=== PATIENT | female | born 1955 | race Caucasian/White ===

== ENCOUNTER 2020-08-17 07:45 | Outpatient (CLI) | payer BC, SELFPAY ==
--- NOTE | ~2020-08-17 | DEXA_ITS ---
Bone Density Report Name: Ruth Garcia Age: 65 Sex: Female Ethnicity: White Date of : 1955 Indication: osteopenia; height loss; postmenopausal Referring Provider: MACKENZIE BETHEA Study: Bone densitometry was performed. Exam Date: August 17, 2020 Accession number: [id number] Bone Density: Region BMD T-score Z-score Classification AP Spine (L1-L4) 0.930 -1.1 0.6 Osteopenia Femoral Neck (Left) 0.713 -1.2 0.2 Osteopenia Total Hip (Left) 0.790 -1.2 -0.1 Osteopenia Total Hip Bilateral Avg 0.790 -1.3 -0.1 Osteopenia Femoral Neck (Right) 0.637 -1.9 -0.4 Osteopenia Total Hip (Right) 0.789 -1.3 -0.1 Osteopenia World Health Organization criteria for BMD impression classify patients as: Normal (T-score at or above -1.0), Osteopenia (T-score between -1.0 and -2.5), or Osteoporosis (T-score at or below -2.5). 10-year Fracture Risk(1): Major Osteoporotic Fracture 9.0% Hip Fracture 1.2% Reported Risk Factors: [place] (), Neck BMD=0.637, BMI=21.4 (1) FRAX(R) Version 3.08. Fracture probability calculated for an untreated patient. Fracture probability may be lower if the patient has received treatment. Previous Exams: Region Exam Age BMD T-score BMD Change BMD Change Date g/cm2 vs Baseline vs Previous AP Spine(L1-L4) 08/17/2020 65 0.930 -1.1 -0.204(-18.0%) -0.034(-3.5%)* 01/22/2018 62 0.964 -0.8 -0.170(-15.0%) -0.044(-4.3%)* 01/10/2015 59 1.007 -0.4 -0.126(-11.1%) -0.075(-6.9%)# 11/20/2011 56 1.082 0.3 -0.051(-4.5%)# -0.051(-4.5%)# 09/08/2008 53 1.134 0.8 Total Hip(Left) 08/17/2020 65 0.790 -1.2 -0.221(-21.8%) -0.023(-2.9%) 01/22/2018 62 0.814 -1.1 -0.197(-19.5%) -0.046(-5.3%)* 01/10/2015 59 0.859 -0.7 -0.152(-15.0%) -0.066(-7.1%)# 11/20/2011 56 0.925 -0.1 -0.086(-8.5%)# -0.086(-8.5%)# 09/08/2008 53 1.011 0.6 Total Hip(Right) 08/17/2020 65 0.789 -1.3 -0.223(-22.0%) -0.010(-1.2%) 01/22/2018 62 0.799 -1.2 -0.213(-21.1%) -0.057(-6.7%)* 01/10/2015 59 0.856 -0.7 -0.156(-15.4%) -0.056(-6.1%)# 11/20/2011 56 0.911 -0.3 -0.100(-9.9%)# -0.100(-9.9%)# 09/08/2008 53 1.012 0.6 *Denotes significance at 95% confidence level, LSC for AP Spine = 0.022 g/cm2, LSC for Total Hip = 0.027 g/cm2 Clinical Information Provided by Patient: Has used the following medications: Vitamin D, Calcium Patient maximum height was 65 Menopause Age: 53 Drinks caffeinated beverages Onset of menses at age 13 Number of children 3 --
--- NOTE | ~2020-08-17 | MM_ITS ---
EXAMINATION: MM screening [facility] BI w wes HISTORY: Screening TECHNIQUE: Craniocaudal and mediolateral oblique 3-D tomosynthesis images were obtained and synthetic 2-D images were generated. CAD analysis was submitted and interpreted. COMPARISON: Comparison to multiple prior studies sequentially, with oldest reviewed study dated 11/2013. BREAST PARENCHYMAL COMPOSITION: The breasts are heterogeneously dense, which may obscure small masses . FINDINGS: There is no evidence of suspicious mass, calcification, or architectural distortion to sugg est malignancy in either breast. There has been no suspicious interval change. IMPRESSION: 1. No mammographic evidence of malignancy. 2. Recommend routine screening mammography in one year. BI-RADS Category 1: Negative Reviewed, dictated and finalized at location A.
== END 2020-08-17 07:46 | disposition home or self-care (01) ==
LOC: ANHIMG 07:49
PROVIDERS: PCP Internal Medicine; Visit Provider Obstetrics & Gynecology Gynecology
DX: Z12.31 Encounter for screening mammogram for malignant neoplasm of breast (principal); Z78.0 Asymptomatic menopausal state; M85.88 Other specified disorders of bone density and structure, other site; M85.852 Other specified disorders of bone density and structure, left thigh; M85.851 Other specified disorders of bone density and structure, right thigh
CPT/HCPCS: 77063; 77067; 77080

== ENCOUNTER 2021-10-31 09:39 | Outpatient (CLI) | payer MEDICARE, OTHER, SELFPAY ==
--- NOTE | ~2021-10-31 | MM_ITS ---
EXAMINATION: MM screening [facility] BI w wes HISTORY: Screening TECHNIQUE: Craniocaudal and mediolateral oblique 3-D tomosynthesis images were obtained and synthetic 2-D images were generated. CAD analysis was submitted and interpreted. COMPARISON: Comparison to multiple prior studies sequentially, with oldest reviewed study dated 12/29. BREAST PARENCHYMAL COMPOSITION: Breast composed of scattered areas of fibroglandular density FINDINGS: There is no evidence of suspicious mass, calcification, or architectural distortion to sugg est malignancy in either breast. There has been no suspicious interval change. IMPRESSION: 1. No mammographic evidence of malignancy. 2. Recommend routine screening mammography in one year. BI-RADS Category 1: Negative Reviewed, dictated and finalized at location A.
== END 2021-10-31 09:40 | disposition home or self-care (01) ==
PROVIDERS: PCP Internal Medicine; Visit Provider Nurse Practitioner
DX: Z12.31 Encounter for screening mammogram for malignant neoplasm of breast (principal)
CPT/HCPCS: 77063; 77067

== ENCOUNTER → 2022-07-05 07:49 | Outpatient (CLI) | payer MEDICARE, OTHER, SELFPAY ==
--- NOTE | ~2022-07-05 | XR_ITS ---
EXAMINATION: XR knee LT 3V DATE: 07/05/2022 08:13 INDICATION: Left knee pain TECHNIQUE: Three views of the left knee were obtained. COMPARISON: None. FINDINGS: Alignment is normal. No fracture or osteochondral lesion. There is mild tricompartmental os teoarthritis characterized by tiny marginal osteophytes. There is small knee joint effusion. There is mild medial soft tissue swelling of the knee. IMPRESSION: 1. Mild osteoarthritis and small knee joint effusion without acute osseous abnormality. Reviewed, dictated and finalized at location B. IMPRESSION: 1. Mild osteoarthritis and small knee joint effusion without acute osseous abno rmality.
== END ==
PROVIDERS: PCP Internal Medicine; Visit Provider Clinical Nurse Specialist
DX: M17.12 Unilateral primary osteoarthritis, left knee (principal); M25.462 Effusion, left knee
CPT/HCPCS: 73562

== ENCOUNTER 2023-03-04 08:22 | Outpatient (CLI) | payer MEDICARE, OTHER, SELFPAY ==
--- NOTE | ~2023-03-04 | DEXA_ITS ---
Bone Density Report Name: CANDY BENTON Age: 67 Sex: Female Ethnicity: White Date of : 1955 Indication: osteopenia; parental hip fracture; height loss; postmenopausal Referring Provider: KHUSHBU, PRETTY Study: Bone densitometry was performed. Exam Date: March 04, 2023 Accession number: [id number] Bone Density: Region BMD T-score Z-score Classification AP Spine(L1-L4) 0.885 -1.5 0.4 Osteopenia Femoral Neck (Left) 0.714 -1.2 0.4 Osteopenia Total Hip (Left) 0.803 -1.1 0.2 Osteopenia Femoral Neck (Right) 0.640 -1.9 -0.3 Osteopenia Total Hip (Right) 0.785 -1.3 0.0 Osteopenia Total Hip Mean 0.794 -1.2 0.1 Osteopenia World Health Organization criteria for BMD impression classify patients as: Normal (T-score at or above -1.0), Osteopenia (T-score between -1.0 and -2.5), or Osteoporosis (T-score at or below -2.5). 10-year Fracture Risk(1): Major Osteoporotic Fracture 16% Hip Fracture 1.9% Reported Risk Factors: [place] (), Neck BMD=0.640, BMI=20.3, parental fracture (1) FRAX(R) Version 3.08. Fracture probability calculated for an untreated patient. Fracture probability may be lower if the patient has received treatment. Previous Exams: Region Exam Age BMD T-score BMD Change BMD Change Date g/cm2 vs Baseline vs Previous AP Spine (L1-L4) 03/04/2023 67 0.885 -1.5 -0.197 (-18.2% -0.044 (-4.8%) 08/17/2020 65 0.930 -1.1 -0.153 (-14.1% -0.034 (-3.5%) 01/22/2018 62 0.964 -0.8 -0.119 (-11.0% -0.044 (-4.3%) 01/10/2015 59 1.007 -0.4 -0.075 (-6.9%) -0.075 (-6.9%) 11/20/2011 56 1.082 0.3 Total Hip(Left) 03/04/2023 67 0.803 -1.1 -0.121 (-13.1% 0.013 (1.7%) 08/17/2020 65 0.790 -1.2 -0.134 (-14.5% -0.023 (-2.9%) 01/22/2018 62 0.814 -1.1 -0.111 (-12.0% -0.046 (-5.3%) 01/10/2015 59 0.859 -0.7 -0.066 (-7.1%) -0.066 (-7.1%) 11/20/2011 56 0.925 -0.1 Total Hip(Right) 03/04/2023 67 0.785 -1.3 -0.126 (-13.8% -0.003 (-0.4%) 08/17/2020 65 0.789 -1.3 -0.123 (-13.5% -0.010 (-1.2%) 01/22/2018 62 0.799 -1.2 -0.113 (-12.4% -0.057 (-6.7%) 01/10/2015 59 0.856 -0.7 -0.056 (-6.1%) -0.056 (-6.1%) 11/20/2011 56 0.911 -0.3 *Denotes significance at 95% confidence level, LSC for AP Spine = 0.022 g/cm2, LSC for Total Hip = 0.027 g/cm2 # Denotes dissimilar scan types or analysis methods Clinical Information Provided by Patient: Parent has had a hip fracture Has used the following medications: Vitamin D
--- NOTE | ~2023-03-04 | MM_ITS ---
EXAMINATION: MM screening [facility] BI w wes HISTORY: Screening mammogram TECHNIQUE: Craniocaudal and mediolateral oblique 3-D tomosynthesis images were obtained and synthetic 2-D images were generated. CAD analysis was submitted and interpreted. COMPARISON: 10/31/2021, 08/17/2020, 01/26/2019 BREAST PARENCHYMAL COMPOSITION: There are scattered areas of fibroglandular density. FINDINGS: No suspicious mass, calcification, or architectural distortion are identified in either cristina ast to suggest malignancy. There has been no suspicious interval change. IMPRESSION: 1. No mammographic evidence of malignancy. 2. Recommend routine screening mammography in one year. BI-RADS Category 1: Negative Reviewed, dictated and finalized at location A. LEMENTAL NURSE
== END 2023-03-04 08:23 | disposition home or self-care (01) ==
PROVIDERS: PCP Internal Medicine; Visit Provider Nurse Practitioner
DX: Z12.31 Encounter for screening mammogram for malignant neoplasm of breast (principal); Z78.0 Asymptomatic menopausal state; M85.89 Other specified disorders of bone density and structure, multiple sites
CPT/HCPCS: 77063; 77067; 77080